=== PATIENT | female | born 1980 | race Caucasian/White ===

== ENCOUNTER 2019-05-23 14:59 | Outpatient (CLI) | payer OTHER, SELFPAY ==
--- NOTE | ~2019-05-23 | US_ITS ---
US thyroid INDICATION: Thyroid nodules. TECHNIQUE: Real-time sonographic images of the thyroid gland were obtained. COMPARISON: Ultrasound dated 02/03/2017 FINDINGS: The right thyroid lobe measures 5.1 x 1.2 x 1.3 cm. The left thyroid lobe measures 4.7 x 1 .2 x 1.6 cm. There is increased vascularity in both lobes. The nodules seen on prior ultrasound are n ot appreciated on the current examination. No discrete thyroid mass identified. IMPRESSION: 1. Enlarged thyroid gland with increased vascularity. No discrete mass identified. Reviewed, dictated and finalized at location A. RTISING PHOTOGRAPHER IMPRESSION: 1. Enlarged thyroid gland with increased vascularity. No discrete mass identif ied.
--- NOTE | ~2019-05-23 | XR_ITS ---
XR thoracic spine 3V 05/23/2019 16:19 Indication: Back pain Procedure: 3 views thoracic spine Comparison: No prior studies for comparison. Findings: Vertebral body heights are maintained. There is dextroscoliosis measuring 19 degrees center ed at T5. No paraspinal soft tissue abnormality. No fracture or traumatic malalignment. Surrounding o sseous structures are unremarkable. Impression: 1: Mild dextroscoliosis of the thoracic spine. Reviewed, dictated and finalized at location A. UTYLENE OPERATOR CHIEF Impression: 1: Mild dextroscoliosis of the thoracic spine.
--- NOTE | ~2019-05-23 | XR_ITS ---
XR shoulder LT min 2V 05/23/2019 16:19 Indication: Left shoulder pain. No acute injury. Procedure: 4 views left shoulder Comparison: No prior studies for comparison. Findings: No fracture, subluxation or dislocation. There is anatomic alignment. Small loose body post erior to the joint space. No significant soft tissue abnormality. Visualized lung parenchyma is unrem arkable. Impression: 1: No significant bone or joint abnormality. Reviewed, dictated and finalized at location A. NURSE SPEC Impression: 1: No significant bone or joint abnormality.
--- NOTE | ~2019-05-23 | MR_ITS ---
EXAMINATION: MR cervical spine wo con DATE: 05/23/2019 16:14 INDICATION: Chronic herniated nucleus pulposus at C6-C7. Chronic neck pain. TECHNIQUE: Magnetic resonance imaging (MRI) of the cervical spine was performed without intravenous c ontrast. Sequences included sagittal T2-weighted FSE, sagittal STIR FSE, sagittal T1-weighted FSE, ax ial MERGE, and axial T2-weighted FSE. COMPARISON: None FINDINGS: There is mild kyphosis of cervical spine. There is 4 degrees levocurvature of cervical spin e. Vertebral body heights and intervertebral disc heights are normal. The spinal cord signal intensit y is normal. The following disc levels are specifically discussed: C2-C3: The disc does not extend beyond the endplate margin. There is mild left uncovertebral joint os teoarthritis. There is mild left facet joint osteoarthritis. There is no neural foraminal stenosis. T here is no central canal stenosis. C3-C4: The disc does not extend beyond the endplate margin. There is no uncovertebral joint osteoarth ritis. There is no facet joint osteoarthritis. There is no neural foraminal stenosis. There is no sasha tral canal stenosis. C4-C5: The disc does not extend beyond the endplate margin. There is no uncovertebral joint osteoarth ritis. There is no facet joint osteoarthritis. There is no neural foraminal stenosis. There is no sasha tral canal stenosis. C5-C6: The disc does not extend beyond the endplate margin. There is mild left uncovertebral joint os teoarthritis. There is mild bilateral facet joint osteoarthritis. There is mild left neural foraminal stenosis. There is no central canal stenosis. C6-C7: The disc does not extend beyond the endplate margin. There is no uncovertebral joint osteoarth ritis. There is mild left facet joint osteoarthritis. There is no neural foraminal stenosis. There is no central canal stenosis. C7-T1: The disc does not extend beyond the endplate margin. There is no uncovertebral joint osteoarth ritis. There is mild bilateral facet joint osteoarthritis. There is no neural foraminal stenosis. The re is no central canal stenosis. IMPRESSION: 1. Mild cervical spondylosis. Reviewed, dictated and finalized at location A. AL OPERATOR
== END 2019-05-23 15:00 | disposition home or self-care (01) ==
PROVIDERS: PCP Internal Medicine
DX: E04.2 Nontoxic multinodular goiter (principal); M47.22 Other spondylosis with radiculopathy, cervical region; M41.84 Other forms of scoliosis, thoracic region; M25.512 Pain in left shoulder
CPT/HCPCS: 72072; 72141; 73030; 76536

== ENCOUNTER 2019-09-13 09:37 | Outpatient (CLI) | payer OTHER, SELFPAY ==
--- NOTE | ~2019-09-13 | MR_ITS ---
EXAMINATION: MR thoracic spine wo con DATE: 09/13/2019 10:55 INDICATION: Thoracic spine pain. TECHNIQUE: Magnetic resonance imaging (MRI) of the thoracic spine was performed without intravenous c ontrast. Sagittal localizer T1-weighted FSE of the cervical spine was obtained. Thoracic spine sequen tank included sagittal T2-weighted FSE, sagittal T1-weighted FSE, sagittal STIR FSE, and axial T2-weig hted FSE. COMPARISON: Thoracic spine radiographs 05/23/2019 FINDINGS: There is 7 degrees dextrocurvature of thoracic spine. Vertebral body heights and interverte bral disc heights are normal. The discs do not extend beyond the endplate margins. At T1-T2, there is moderate right facet joint osteoarthritis and mild right neural foraminal stenosis. No central canal stenosis. The spinal cord signal intensity is normal. IMPRESSION: 1. Mild thoracic spondylosis. Reviewed, dictated and finalized at location A.
== END 2019-09-13 09:38 | disposition home or self-care (01) ==
LOC: ANHIMG 09:44
PROVIDERS: PCP Internal Medicine
DX: M47.894 Other spondylosis, thoracic region (principal)
CPT/HCPCS: 72146

== ENCOUNTER 2019-09-27 17:47 | Emergency (ER) | payer OTHER, SELFPAY ==
[2019-09-27] VITALS (7 sets, daily range): BP systolic 118–140; BP diastolic 74–99; PULSE 59–85; RESP 16–20; TEMP 36.5; O2SAT 99–100
[2019-09-27 18:32] LABS: Basophils Percent Auto 0.2 % (0.2-1.2); Eosinophils Absolute Auto 0.1 K/mm3 (0-0.3); Eosinophils Percent Auto 0.9 % (0-4.4); Hematocrit 40.5 % (37.0-47.0); Hemoglobin 13.6 g/dL (12.0-15.0); Immature Granulocyte Absolute 0.03 K/mm3 (0.00-0.031); Immature Granulocyte Percent A 0.4 % (0-0.5); Lymphocytes Absolute Auto 1.56 K/mm3 (0.9-3.2); Lymphocytes Percent Auto 19.4 % (18.3-44.2); Mean Corpuscular HGB Conc 33.6 g/dl (32-36); Mean Corpuscular Hemoglobin 30.4 pg (26-34); Mean Corpuscular Volume 90.4 fl (80-100); Mean Platelet Volume 9.5 fl (7.4-10.4); Monocytes Absolute Auto 0.6 K/mm3 (0.1-0.6); Monocytes Percent Auto 7.7 % (2.6-8.5); Neutrophils Absolute Auto 5.7 K/mm3 (1.3-6.7); Neutrophils Percent Auto 71.4 % (45.5-73.1); Platelet Count Result 306 k/mm3 (150-375); Red Blood Count 4.48 M/mm3 (4.2-5.4); Red Cell Distribution Width 12.5 % (11.5-14.5)
[2019-09-27 18:44] LABS: Partial Thromboplastin Time 23.4 SECONDS (22.3-36.8); Prothrombin Time 12.7 Seconds (11.1-14.7)
[2019-09-27 18:49] LABS: Alanine Aminotransferase 32 U/L (4-35); Albumin Level 4.7 g/dL (3.5-5.1); Alkaline Phosphatase 60 U/L (38-126); Aspartate Amino Transferase 31 U/L (14-36); Bilirubin,Total 0.6 mg/dL (0.2-1.3); Blood Urea Nitrogen 12 mg/dL (7-17); Calcium 10.6 mg/dL (8.4-10.2); Carbon Dioxide 26 mmol/L (22-30); Chloride 99 mmol/L (98-107); Estimated CRCL calculation 84 ml/min; Estimated Glomerular Filt Rate > 60; Glucose 92 mg/dL (65-105); Sodium 136 mmol/L (137-145)
[2019-09-27] MEDS: HYOSCYAMINE SULFATE 0.125 MG TABLET PO (20:40)
[2019-09-27] MEDS: FAMOTIDINE 20 MG/2 ML VIAL IV PUSH (20:40)
[2019-09-27] MEDS: SODIUM CHLORIDE 0.9% IV 1,000 ML 999 ML (20:40)
[2019-09-27] MEDS: ONDANSETRON INJ 4 MG/2 ML VIAL (20:48)
--- NOTE | 2019-09-27 21:00 | ED.GENADULT ---
HPI - General Adult General Chief complaint: GI Bleed Stated complaint: bloody stools Time Seen by Provider: 09/27/19 19:47 History of Present Illness HPI narrative: Patient is a 38-year-old female who presents to emergency department for evaluation of rectal bleeding noting that she has had multiple loose red stools since this morning when she began to strain for a bowel movement and has since had some bloody stools described as red blood with some cramping in the lower abdomen patient notes that she was intoxicated last night but denies vomiting hematemesis. Patient notes some discomfort in the lower pelvic region. Patient took Tylenol earlier in the day and on arrival to emergency department is resting comfortably in the room in no distress patient denies similar occurrence in the past Related Data Allergies Allergy/AdvReac Type Severity Reaction Status Date / Time amoxicillin Allergy Unknown Verified 01/29/10 10:08 Sulfa (Sulfonamide Allergy Unknown Verified 01/29/10 10:08 Antibiotics) AMOXICILLIN TRIHYDRATE Allergy Intermediate Hives / Uncoded 08/24/17 11:50 Red Face POTASSIUM CLAVULANATE Allergy Intermediate Hives / Uncoded 08/24/17 11:50 Red Face SHELLFISH Allergy Mild HIVES Uncoded 08/06/14 12:31 Review of Systems Review of Systems: All systems reviewed & are unremarkable except as noted in HPI and below PMFSH Family History Family History (Updated 07/09/16 @ 23:56 by DOCTOR UNKNOWN) Grandparent Family history of bronchitis, Onset Age: 80 Social History Social History Smoking status: Never smoker Second hand tobacco smoke exposure: No Alcohol intake: current Exam Narrative: Exam Narrative: GENERAL: Well-appearing, well-nourished, and in no acute distress. HEAD: Normocephalic, atraumatic. EYES: PERRLA and EOMI. ENT: Nares clear, no rhinorrhea or epistaxis. Mucous membranes moist. CHEST: Clear to auscultation. No respiratory distress. No wheezes rales or rhonchi HEART: Regular rate and rhythm. No murmur heard. Normal peripheral pulses. ABDOMEN: Soft, mild tenderness in the lower quadrants of the abdomen, nondistended EXTREMITIES: Normal range of motion. No edema. SKIN: Warm, dry, no rash. NEURO: No focal deficits. Alert and oriented x3. Cranial nerves II through XII grossly intact PSYCH: Normal mood and affect. Course Course Emergency Course: Patient in the room in no distress aware of case findings treatment plan and diagnosis Vital Signs Vital signs: Vital Signs Temperature 97.7 F 09/27/19 18:08 Pulse Rate 85 09/27/19 18:08 Respiratory Rate 16 09/27/19 18:08 Blood Pressure 140/99 H 09/27/19 18:08 Pulse Oximetry 100 09/27/19 18:08 Temperature 97.7 F 09/27/19 18:08 Pulse Rate 78 09/27/19 20:49 Respiratory Rate 20 09/27/19 20:49 Blood Pressure 122/78 09/27/19 20:49 Pulse Oximetry 99 09/27/19 20:49 Medical Decision Making MDM Narrative Medical decision making narrative: Patient in the room in no distress guaiac-negative nothing exciting to be seen on the rectal exam other than a small area of irritation which could be a small fissure patient hemodynamically stable in no distress given fluids and medications in the emergency department will be discharged home for follow-up with gastroenterology provided with reasons to return as well Vital Signs Vital Signs: Vital Signs Temperature 97.7 F 09/27/19 18:08 Pulse Rate 85 09/27/19 18:08 Respiratory Rate 16 09/27/19 18:08 Blood Pressure 140/99 H 09/27/19 18:08 Pulse Oximetry 100 09/27/19 18:08 Temperature 97.7 F 09/27/19 18:08 Pulse Rate 78 09/27/19 20:49 Respiratory Rate 20 09/27/19 20:49 Blood Pressure 122/78 09/27/19 20:49 Pulse Oximetry 99 09/27/19 20:49 Lab Data Result diagrams: 09/27/19 18:11 09/27/19 18:11 Labs: Lab Results 09/27/19 09/27/19 06/2
[2019-09-27 21:25] LABS: Hematocrit 39.1 % (37.0-47.0); Hemoglobin 13.2 g/dL (12.0-15.0)
== END 2019-09-27 21:58 | disposition home or self-care (01) ==
PROVIDERS: Emergency Medicine; Emergency Medicine Emergency Medical Services; Emergency Provider Emergency Medicine; PCP Internal Medicine
DX: K62.5 Hemorrhage of anus and rectum (principal)
CPT/HCPCS: 36415; 80053; 85014; 85018; 85025; 85610; 85730; 86850; 86900; 86901; 96365; 96375; 99282; A9270; J0131; J2405; J7030

== ENCOUNTER 2019-09-28 04:26 | Emergency (ER) | payer OTHER, SELFPAY ==
--- NOTE | ~2019-09-28 | CT_ITS ---
EXAMINATION: CT abdomen pelvis w con DATE: 09/28/2019 05:28 INDICATION: Left lower quadrant abdominal pain TECHNIQUE: Computed tomography (CT) of the abdomen and pelvis was performed with 100 mL Omnipaque-350 intravenous contrast. Automated exposure control and iterative reconstruction technique were employe d. The dose-length product was 378.03 mGy-cm. COMPARISON: None FINDINGS: Lung bases are clear. Heart size is normal. No pericardial or pleural effusion. Focal hepatic steatos is at the ligamentum teres. Gallbladder, spleen, pancreas, bilateral adrenal glands and kidneys are n ormal. There is diffuse edematous wall thickening of the colon most prominent along the sigmoid colon consistent with colitis. No pneumatosis. Small bowel and appendix are normal. IUD in expected positi on within the endometrial complex of the anteverted uterus. Bladder is normal. Couple follicles in th e bilateral ovaries. Small fat-containing umbilical hernia. No free intraperitoneal gas or fluid. No pathologically enlarged abdominal or pelvic lymphadenopathy. IMPRESSION: 1. Colitis which could be infectious, inflammatory or less likely ischemic in etiology 2. IUD in expected position. Reviewed, dictated and finalized at location A. IMPRESSION: 1. Colitis which could be infectious, inflammatory or less likely ischemic in e tiology 2. IUD in expected position.
[2019-09-28 04:31] VITALS: BP 136/100; PULSE 73; RESP 14; TEMP 36.9; O2SAT 98
--- NOTE | 2019-09-28 05:22 | ED.ABDPAIN ---
HPI - Abdominal Pain General Chief Complaint: Abdominal Pain Stated Complaint: abd pain Time Seen by Provider: 09/28/19 04:37 History of Present Illness HPI narrative: Patient is a 38-year-old female who presents the ER with abdominal cramping. Seen earlier this evening for rectal bleeding. Was discharged home. Patient started having some blood per rectum again with worsening abdominal cramping says that she come back for further evaluation. The last thing she ate prior to developing her symptoms the day previous was a pork tenderloin. No one else is sick around her. She is without fevers or chills or sweats. No history of inflammatory bowel disease or diverticulitis. Patient reports when she passes blood from her rectum is not in large quantities but more of a bloody splatter. Related Data Allergies Allergy/AdvReac Type Severity Reaction Status Date / Time amoxicillin Allergy Unknown Verified 01/29/10 10:08 Sulfa (Sulfonamide Allergy Unknown Verified 01/29/10 10:08 Antibiotics) AMOXICILLIN TRIHYDRATE Allergy Intermediate Hives / Uncoded 08/24/17 11:50 Red Face POTASSIUM CLAVULANATE Allergy Intermediate Hives / Uncoded 08/24/17 11:50 Red Face SHELLFISH Allergy Mild HIVES Uncoded 08/06/14 12:31 Review of Systems Review of Systems: All systems reviewed & are unremarkable except as noted in HPI and below Constitutional: Constitutional: Denies chills, Denies fever(s) and Denies weakness Gastrointestinal: Gastrointestinal: Reports abdominal pain, Denies diarrhea, Reports nausea and Denies vomiting Comments: Rectal bleeding PMFSH Past Medical History Medical History (Updated 09/28/19 @ 06:44 by Joni Layne MD) No pertinent past medical history Surgical History Surgical History (Updated 09/28/19 @ 06:44 by Joni Layne MD) No pertinent past surgical history Family History Family History (Updated 07/09/16 @ 23:56 by DOCTOR UNKNOWN) Grandparent Family history of bronchitis, Onset Age: 80 Social History Social History Smoking status: Never smoker Second hand tobacco smoke exposure: No Alcohol intake: current Gender identity (if verbalized by the patient): Female Exam Narrative: Exam Narrative: GENERAL: Well-appearing, well-nourished, and in no acute distress. HEAD: Normocephalic, atraumatic. ENT: Mucous membranes moist. CHEST: Clear to auscultation. No respiratory distress. HEART: Regular rate and rhythm. Normal peripheral pulses. ABDOMEN: Soft, mild left lower quadrant tenderness without guarding, nondistended, rectal deferred. EXTREMITIES: Normal range of motion. No edema. NEURO: Alert and oriented x3. PSYCH: Normal mood and affect. Course Course Emergency Course: Informed of results. Morphine for pain, had to receive some Zofran for nausea secondary to the medication. Discharged with Cipro/Flagyl. Vital Signs Vital signs: Vital Signs Temperature 98.5 F 09/28/19 04:31 Pulse Rate 73 09/28/19 04:31 Respiratory Rate 14 09/28/19 04:31 Blood Pressure 136/100 H 09/28/19 04:31 Pulse Oximetry 98 09/28/19 04:31 Temperature 98.5 F 09/28/19 04:31 Pulse Rate 71 09/28/19 06:19 Respiratory Rate 16 09/28/19 06:19 Blood Pressure 131/88 09/28/19 06:19 Pulse Oximetry 100 09/28/19 06:19 MDM - Abdominal Pain Lab Data Labs: UCG Bedside Result Negative Reference Range: Negative Imaging Data Radiologist's impression: CT A/P: Desceding colitis Discharge Plan Discharge Clinical Impression: Colitis Patient Disposition: Home, Self-Care Condition: Stable Instructions: Antibiotic Form, Colitis (ED) Additional Instructions: Return the ER if you have fever over 100.4 ?F, you cannot keep down food or water, you have chest pain or shortness of breath, you have additional concerns. Prescriptions: New ciprofloxacin HCl [Cipro] 500
[2019-09-28] MEDS: MORPHINE SULFATE 4 MG/ML INJ IV PUSH (05:55)
[2019-09-28] MEDS: ONDANSETRON INJ 4 MG/2 ML VIAL (06:18)
[2019-09-28 06:19] VITALS: BP 131/88; PULSE 71; RESP 16; O2SAT 100
== END 2019-09-28 06:20 | disposition home or self-care (01) ==
PROVIDERS: Emergency Provider Emergency Medicine; PCP Internal Medicine
DX: K52.9 Noninfective gastroenteritis and colitis, unspecified (principal)
CPT/HCPCS: 74177; 81025; 96374; 96375; 99284; J2270; J2405; Q9967

== ENCOUNTER 2019-10-29 03:01 | Outpatient (CLI) | payer OTHER, SELFPAY ==
[2019-10-30 22:31] LABS: SARS-CoV-2 RNA PCR Negative
== END 2019-10-29 03:02 | disposition home or self-care (01) ==
LOC: ANHCOVIDDT 03:01
PROVIDERS: PCP Internal Medicine; Visit Provider Internal Medicine Gastroenterology
DX: Z01.812 Encounter for preprocedural laboratory examination (principal); Z11.59 Encounter for screening for other viral diseases
CPT/HCPCS: 87635; C9803; U0003

== ENCOUNTER 2019-10-31 02:20 | Day surgery (SDC) | payer OTHER, SELFPAY ==
[2019-10-23 10:06] VITALS: BMI 24.9
[2019-10-31 07:38] VITALS: BP 118/73; PULSE 72; RESP 18; TEMP 36.7; O2SAT 100; BMI 25.2
[2019-10-31] MEDS: LACTATED RINGERS 1,000 ML 150 ML IV CONT (07:49)
--- NOTE | 2019-10-31 08:06 | WPDGICN ---
Assessment and Plan Assessment and plan (1) Infectious colitis: Code(s): A09 - Infectious gastroenteritis and colitis, unspecified Status: Acute Assessment and Plan: Patient presents for evaluation of abdominal pain and bloody stools. She had an abnormal CT scan in the emergency room raising the question of thickening of the sigmoid colon. Infectious colitis appears most likely. Although inflammatory bowel disease cannot be excluded. Plan is for patient have a high-fiber diet. She has completed a course of antibiotics. A colonoscopy will be performed to ensure resolution of her colitis or to determine if any ongoing pathology remains. GI Consult Note Consult date/time: 10/31/19 08:06 HPI: Kirstie Thomas is a 38 year old female seen in evaluation at the request of Dr Joni Prado. Patient reports an episode of severe abdominal pain associated with bloody diarrhea that awoke her from sleep 1 month ago. She presented to the emergency room a CT scan suggested colitis with thickening of the colon predominantly in the sigmoid colon. Patient was treated with broad-spectrum antibiotic coverage. She subsequently improved and has done well. Currently free from pain she denies any ongoing bleeding. Her bowel habits return to normal shoe. She denies any blood loss. Family history is significant her father had diverticulitis. Her mother has unspecified colon issues. Review of Systems Review of Systems: All systems reviewed & are unremarkable except as noted in HPI and below PMFSH Past Medical History Medical History No pertinent past medical history Surgical History Surgical History No pertinent past surgical history Family History Family History Grandparent Family history of bronchitis, Onset Age: 80 Social History Social History Smoking status: Never smoker Second hand tobacco smoke exposure: No Alcohol intake: current Gender identity (if verbalized by the patient): Female Meds Home Medications and Allergies Home Medications Medication Instructions Recorded Confirmed Type levothyroxine 137 mcg PO DAILY 10/23/19 10/31/19 History Allergies Allergy/AdvReac Type Severity Reaction Status Date / Time clavulanic acid Allergy Mild Hives Verified 10/31/19 07:36 [From Augmentin] amoxicillin Allergy Unknown Other Verified 10/23/19 10:06 Sulfa (Sulfonamide Allergy Unknown Other Verified 10/23/19 10:06 Antibiotics) AMOXICILLIN TRIHYDRATE Allergy Intermediate Hives / Uncoded 10/23/19 10:06 Red Face POTASSIUM CLAVULANATE Allergy Intermediate Hives / Uncoded 10/23/19 10:06 Red Face SHELLFISH Allergy Mild HIVES Uncoded 10/23/19 10:06 Vital Signs Vital Signs - 24 hr 10/31/19 07:38 Temperature 98.1 F Pulse Rate 72 Respiratory Rate 18 Blood Pressure 118/73 Pulse Oximetry 100 Exam Narrative: Exam Narrative: Physical exam reveals patient to be alert. Vital signs are stable. She is somewhat anxious at rest. HEENT exam unremarkable. She is anicteric. Lungs are clear to auscultation and percussion. Heart is without murmur or extra sounds. Abdominal exam bowel sounds are present soft nontender with no organomegaly. Digital external rectal exam is normal.
--- NOTE | 2019-10-31 08:37 | WPDANESEPPF ---
Anes - Initial Pre Proc Eval Procedure: Operation Date: 10/31/19 08:30 Proposed Procedures p Colonoscopy - Too Ortiz MD Date/Time: 10/31/19 08:37 Surgeon: Too Ortiz MD Pre Op Diagnosis: Colitis Patient Data Age: 38 Gender: F Height: 5 ft 6 in Weight: 70.9 kg Last Vital Signs Temp 98.1 F 10/31/19 07:38 Pulse 72 10/31/19 07:38 Resp 18 10/31/19 07:38 BP 118/73 10/31/19 07:38 Pulse Ox 100 10/31/19 07:38 Allergies Allergy/AdvReac Type Severity Reaction Status Date / Time clavulanic acid Allergy Mild Hives Verified 10/31/19 07:36 [From Augmentin] amoxicillin Allergy Unknown Other Verified 10/23/19 10:06 Sulfa (Sulfonamide Allergy Unknown Other Verified 10/23/19 10:06 Antibiotics) AMOXICILLIN TRIHYDRATE Allergy Intermediate Hives / Uncoded 10/23/19 10:06 Red Face POTASSIUM CLAVULANATE Allergy Intermediate Hives / Uncoded 10/23/19 10:06 Red Face SHELLFISH Allergy Mild HIVES Uncoded 10/23/19 10:06 Home Medications Medication Instructions Recorded Confirmed Type levothyroxine 137 mcg PO DAILY 10/23/19 10/31/19 History Patient hx anesthesia problems: none Family hx anesthesia problems: none PMFSH Past Medical History Medical History (Updated 10/31/19 @ 08:36 by Raymundo Calix MD) Hypothyroid No pertinent past medical history Surgical History Surgical History No pertinent past surgical history Family History Family History Grandparent Family history of bronchitis, Onset Age: 80 Social History Social History Smoking status: Never smoker Second hand tobacco smoke exposure: No Alcohol intake: current Gender identity (if verbalized by the patient): Female Anes - Eval Final PreProcedure Day of Procedure 10/31/19 08:37 Patient weight: normal Heart: regular rate and rhythm Lungs: clear to auscultation Airway: Mallampati scale class II Neurological: alert and oriented Last oral intake: >/= 8 hours ASA classification: II Emergent: no Anesthetic plan: proceed Anesthesia type and monitoring: general GIVS and standard monitoring Informed Consent: The patient's anesthetic plan and its attendant risks and benefits were discussed with the patient/family/POA. Questions were solicited and answers provided to the satisfaction of the patient/family/POA.
--- NOTE | 2019-10-31 08:38 | WPDANESEPPF ---
Anes - Initial Pre Proc Eval Procedure: Operation Date: 10/31/19 08:30 Proposed Procedures p Colonoscopy - Too Ortiz MD Date/Time: 10/31/19 08:38 Surgeon: Too Ortiz MD Pre Op Diagnosis: Colitis Patient Data Age: 38 Gender: F Height: 5 ft 6 in Weight: 70.9 kg Last Vital Signs Temp 98.1 F 10/31/19 07:38 Pulse 72 10/31/19 07:38 Resp 18 10/31/19 07:38 BP 118/73 10/31/19 07:38 Pulse Ox 100 10/31/19 07:38 Allergies Allergy/AdvReac Type Severity Reaction Status Date / Time clavulanic acid Allergy Mild Hives Verified 10/31/19 07:36 [From Augmentin] amoxicillin Allergy Unknown Other Verified 10/23/19 10:06 Sulfa (Sulfonamide Allergy Unknown Other Verified 10/23/19 10:06 Antibiotics) AMOXICILLIN TRIHYDRATE Allergy Intermediate Hives / Uncoded 10/23/19 10:06 Red Face POTASSIUM CLAVULANATE Allergy Intermediate Hives / Uncoded 10/23/19 10:06 Red Face SHELLFISH Allergy Mild HIVES Uncoded 10/23/19 10:06 Home Medications Medication Instructions Recorded Confirmed Type levothyroxine 137 mcg PO DAILY 10/23/19 10/31/19 History Patient hx anesthesia problems: none Family hx anesthesia problems: none PMFSH Past Medical History Medical History (Updated 10/31/19 @ 08:36 by Raymundo Calix MD) Hypothyroid No pertinent past medical history Surgical History Surgical History No pertinent past surgical history Family History Family History Grandparent Family history of bronchitis, Onset Age: 80 Social History Social History Smoking status: Never smoker Second hand tobacco smoke exposure: No Alcohol intake: current Gender identity (if verbalized by the patient): Female Anes - Eval Final PreProcedure Day of Procedure 10/31/19 08:38 Patient weight: normal Heart: regular rate and rhythm Lungs: clear to auscultation Airway: Mallampati scale class II Neurological: alert and oriented Last oral intake: >/= 8 hours ASA classification: II Emergent: no Anesthetic plan: proceed Anesthesia type and monitoring: general GIVS and standard monitoring Informed Consent: The patient's anesthetic plan and its attendant risks and benefits were discussed with the patient/family/POA. Questions were solicited and answers provided to the satisfaction of the patient/family/POA.
[2019-10-31 09:00] VITALS: BP 105/70; PULSE 60; RESP 19; O2SAT 100
[2019-10-31 09:10] VITALS: BP 117/76; PULSE 70; RESP 22; O2SAT 100
[2019-10-31 09:20] VITALS: BP 129/79; PULSE 68; RESP 20; O2SAT 100
== END 2019-10-31 09:29 | disposition home or self-care (01) ==
PROVIDERS: PCP Internal Medicine; Visit Provider Internal Medicine Gastroenterology
PROC: 0DJD8ZZ Inspection of Lower Intestinal Tract, Via Natural or Artificial Opening Endoscopic (ICD-10-PCS; CPT 45378; principal; 2019-10-31 08:30)
DX: Z09 Encounter for follow-up examination after completed treatment for conditions other than malignant neoplasm (principal); K64.8 Other hemorrhoids; Z87.19 Personal history of other diseases of the digestive system; E03.9 Hypothyroidism, unspecified
CPT/HCPCS: 45378; 87635; C9803; J2704; J7120; U0003

== ENCOUNTER → 2020-11-12 15:30 | Outpatient (CLI) | payer OTHER, SELFPAY ==
--- NOTE | ~2020-11-12 | XR_ITS ---
EXAMINATION: XR chest 2V DATE: 11/12/2020 16:10 INDICATION: Left shoulder pain. Cervical radicular pain. Thoracic outlet syndrome. TECHNIQUE: Frontal and lateral views of the chest were obtained. COMPARISON: CT abdomen and pelvis 09/28/19, neck CT 09/19/2015 FINDINGS: The chest demonstrates clear lungs without pneumonia, pleural effusion, or pneumothorax. Th e heart size is normal. There is elongation of the left C7 transverse process. IMPRESSION: 1. Elongation of the left C7 transverse process. Reviewed, dictated and finalized at location A.
== END ==
PROVIDERS: PCP Internal Medicine; Visit Provider Physician Assistant
DX: M54.12 Radiculopathy, cervical region (principal); M25.512 Pain in left shoulder
CPT/HCPCS: 71046

== ENCOUNTER → 2021-01-12 09:33 | Outpatient (CLI) | payer OTHER, SELFPAY ==
--- NOTE | ~2021-01-12 | MR_ITS ---
EXAMINATION: MR shoulder LT wo con DATE: 01/12/2021 10:17 INDICATION: Other shoulder lesions, left shoulder. Left shoulder pain. TECHNIQUE: Magnetic resonance imaging (MRI) of the left shoulder was performed without intravenous co ntrast. Sequences included axial PD-weighted FS FSE, coronal oblique PD-weighted FS FSE and T2-weight ed FS FSE, and sagittal oblique T2-weighted FS FSE and T1-weighted FSE. COMPARISON: Left shoulder radiographs 05/23/2019 FINDINGS: Coracoacromial arch: The acromion undersurface is curved in morphology (type II). Subacromial spurring is noted. Acromiocl avicular joint is normal. No significant subacromial/subdeltoid bursitis. Rotator cuff: There is mild supraspinatus and infraspinatus tendinopathy. Teres minor tendon is normal. Subscapular is tendon is normal. No tear. There is no asymmetric fatty atrophy of the rotator cuff muscle bellies . Biceps tendon and glenoid labrum: Biceps tendon is in bicipital groove. Intra-articular biceps tendon is normal. The glenoid labrum is normal. Fluid: There is no glenohumeral joint effusion. Bones/cartilage: Glenoid cartilage is normal. Humeral head cartilage is normal. IMPRESSION: 1. Mild rotator cuff tendinopathy. No tear. Reviewed, dictated and finalized at location A.
== END ==
PROVIDERS: PCP Internal Medicine; Visit Provider Physician Assistant
DX: M75.82 Other shoulder lesions, left shoulder (principal); M25.512 Pain in left shoulder
CPT/HCPCS: 73221

== ENCOUNTER → 2021-01-12 15:35 | Outpatient (CLI) | payer OTHER, SELFPAY ==
--- NOTE | ~2021-01-12 | MM_ITS ---
EXAMINATION: MM screening katt BI w noe HISTORY: Screening TECHNIQUE: Craniocaudal and mediolateral oblique 3-D tomosynthesis images were obtained and synthetic 2-D images were generated. CAD analysis was submitted and interpreted. COMPARISON: No prior mammogram is available for comparison at this institution. BREAST PARENCHYMAL COMPOSITION: There are scattered areas of fibroglandular density. FINDINGS: There is no evidence of suspicious mass, calcification, or architectural distortion to sugg est malignancy in either breast. There has been no suspicious interval change. IMPRESSION: 1. No mammographic evidence of malignancy. 2. Recommend routine screening mammography in one year. BI-RADS Category 1: Negative Reviewed, dictated and finalized at location A.
== END ==
PROVIDERS: PCP Internal Medicine; Visit Provider Obstetrics & Gynecology
DX: Z12.31 Encounter for screening mammogram for malignant neoplasm of breast (principal)
CPT/HCPCS: 77063; 77067

== ENCOUNTER 2021-07-28 10:01 | Emergency (ER) | payer OTHER, SELFPAY ==
[2021-07-28 10:12] VITALS: BP 120/81; PULSE 70; RESP 16; TEMP 36.3; O2SAT 100
--- NOTE | 2021-07-28 10:12 | ED.EAR ---
HPI - Ear Problem General Chief complaint: Upper Respiratory Infection Stated complaint: sorethroat,bilateral ear pain Time Seen by Provider: 07/28/21 10:20 Source: patient, RN notes reviewed and old records reviewed Mode of arrival: ambulatory Limitations: no limitations History of Present Illness HPI Narrative: 40-year-old female who presents to [facility] with complaints of sore throat and bilateral ear pain for the past 4 days. Patient reports that throat is more painful in the morning and at night she has been taking ibuprofen for her pain. Patient verbalizes some nasal drainage and bilateral ear pain also and left lymph node swelling with discomfort. Patient reports that she did a home COVID test last evening that was negative, she states that she has had COVID vaccinations and also flu shot this season.Patient reports no fevers, chills or sweats, no complaints of body aches. MD Complaint: ear pain Location: bilateral Severity: moderate Discharge from ear: Reports no Associated symptoms ear: neck swelling (left neck lymph node) Treatment prior to arrival: oral analgesic Related Data Home Medications Medication Instructions Recorded Confirmed levothyroxine 137 mcg PO DAILY 10/23/19 07/28/21 levonorgestrel [Mirena] 1 device INTRAUTERINE ONCE 07/28/21 07/28/21 spironolactone 100 mg PO BID 07/28/21 07/28/21 Allergies Allergy/AdvReac Type Severity Reaction Status Date / Time clavulanic acid Allergy Mild Hives Verified 07/28/21 10:20 [From Augmentin] amoxicillin Allergy Unknown Other Verified 07/28/21 10:20 Sulfa (Sulfonamide Allergy Unknown Other Verified 07/28/21 10:20 Antibiotics) AMOXICILLIN TRIHYDRATE Allergy Intermediate Hives / Uncoded 10/23/19 10:06 Red Face POTASSIUM CLAVULANATE Allergy Intermediate Hives / Uncoded 10/23/19 10:06 Red Face SHELLFISH Allergy Mild HIVES Uncoded 10/23/19 10:06 Review of Systems Review of Systems: CONSTITUTIONAL: Denies fever, chills, or sweats. EYES: Denies visual changes, redness, or discharge. ENT: Minimal rhinorrhea, congestion, positive for sore throat,bilateral otalgia. CARDIOVASCULAR: Denies chest pain, palpitations, or edema. RESPIRATORY: Denies cough or dyspnea. GASTROINTESTINAL: Denies abdominal pain, nausea, vomiting, or diarrhea. GENITOURINARY: Denies dysuria or hematuria. SKIN: Denies rash or itching. MUSCULOSKELETAL: Denies back pain, joint pain, or myalgia. NEUROLOGIC: Denies headache, numbness, or weakness. PSYCHIATRIC: Positive for history of anxiety or depression. All systems reviewed & are unremarkable except as noted in HPI and below PMFSH Past Medical History Medical History (Updated 07/28/21 @ 10:40 by Mariana Frank NP) Depression Hypothyroid Surgical History Surgical History (Updated 07/28/21 @ 10:15 by Mariana Frank NP) H/O section History of dilatation and curettage History of tonsillectomy Family History Family History (Updated 07/28/21 @ 10:15 by Mariana Frank NP) Grandparent Family history of bronchitis, Onset Age: 80 Father Throat cancer Mother Hypothyroidism Social History Social History (Updated 07/28/21 @ 10:49 by Mariana Frakn NP) Smoking status: Never smoker Second hand tobacco smoke exposure: No Alcohol intake: current Substance use type: does not use Living arrangements: with family 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 There is no relevant family history pertinent to the presenting complaint Exam Narrative: GENERAL: Well-appearing, well-nourished, and in no acute distress. HEAD: Normocephalic, atraumatic. EYES: PERRLA and EOMI. ENT: Nares with minimal redness, clear rhinorrhea no epistaxis. Mucous membranes moist.TM's normal with dull lig
== END 2021-07-28 10:45 | disposition home or self-care (01) ==
PROVIDERS: Emergency Provider Registered Nurse; PCP Internal Medicine
DX: J02.0 Streptococcal pharyngitis (principal); H92.03 Otalgia, bilateral; E03.9 Hypothyroidism, unspecified
CPT/HCPCS: 87081; 87147; 87880; 99213; G0463

== ENCOUNTER → 2022-04-02 13:53 | Outpatient (CLI) | payer OTHER, SELFPAY ==
--- NOTE | ~2022-04-02 | MM_ITS ---
EXAMINATION: MM screening katt BI w noe HISTORY: Screening mammogram TECHNIQUE: Craniocaudal and mediolateral oblique 3-D tomosynthesis images were obtained and synthetic 2-D images were generated. CAD analysis was submitted and interpreted. COMPARISON: 01/12/2021 bilateral screening mammogram BREAST PARENCHYMAL COMPOSITION: There are scattered areas of fibroglandular density. FINDINGS: There is no evidence of suspicious mass, calcification, or architectural distortion to sugg est malignancy in either breast. There has been no suspicious interval change. IMPRESSION: 1. No mammographic evidence of malignancy. 2. Recommend routine screening mammography in one year. BI-RADS Category 1: Negative Reviewed, dictated and finalized at location A. COMMUNICATIONS
== END ==
PROVIDERS: PCP Internal Medicine; Visit Provider Obstetrics & Gynecology
DX: Z12.31 Encounter for screening mammogram for malignant neoplasm of breast (principal)
CPT/HCPCS: 77063; 77067

== ENCOUNTER 2023-02-28 15:25 | Emergency (ER) | payer OTHER, SELFPAY ==
[2023-02-28 15:31] VITALS: BP 111/82; PULSE 90; RESP 16; TEMP 36.6; O2SAT 100
--- NOTE | 2023-02-28 16:09 | ED.URI ---
HPI - URI/Sore Throat General Chief Complaint: Upper Respiratory Infection Stated Complaint: Sore Throat,Bilateral Ear Irritation,Fatigue Time Seen by Provider: 02/28/23 16:00 Source: patient and RN notes reviewed Mode of arrival: ambulatory Limitations: no limitations History of Present Illness HPI Narrative: Patient presents today complaining of a sore throat, bilateral ear pain, fatigue, headache since yesterday. Denies fever or cough. Currently rates her pain 6/10 and has been taking cold and flu medicine without relief. Patient works at a school. Related Data Home Medications Medication Instructions Recorded Confirmed levothyroxine 137 mcg tablet 137 mcg PO DAILY 10/23/19 02/28/23 levonorgestrel 21 mcg/24 hours (8 1 device intrauterine ONCE 07/28/21 02/28/23 yrs) 52 mg intrauterine device (Mirena) spironolactone 100 mg tablet 100 mg PO BID 07/28/21 02/28/23 Allergies Allergy/AdvReac Type Severity Reaction Status Date / Time amoxicillin AdvReac Mild Hives Verified 02/28/23 15:34 clavulanic acid AdvReac Mild Hives Verified 02/28/23 15:34 [From Augmentin] Sulfa (Sulfonamide AdvReac Mild Hives Verified 02/28/23 15:34 Antibiotics) AMOXICILLIN TRIHYDRATE AdvReac Intermediate Hives / Uncoded 02/28/23 15:34 Red Face POTASSIUM CLAVULANATE AdvReac Intermediate Hives / Uncoded 02/28/23 15:34 Red Face SHELLFISH AdvReac Mild HIVES Uncoded 02/28/23 15:34 Review of Systems Review of Systems: CONSTITUTIONAL: Denies body aches, fever, chills, or sweats.+ fatigue EYES: Denies visual changes, redness, or discharge. ENT: Denies rhinorrhea, congestion. + sore throat, bilateral ear pain CARDIOVASCULAR: Denies chest pain, palpitations, or edema. RESPIRATORY: Denies cough or dyspnea. GASTROINTESTINAL: Denies abdominal pain, nausea, vomiting, or diarrhea. GENITOURINARY: Denies dysuria or hematuria. SKIN: Denies rash, itching, or wounds. MUSCULOSKELETAL: Denies back pain, joint pain, or myalgia. NEUROLOGIC: Denies numbness, tingling, or weakness.+ headache PSYCH: Denies depression or anxiety. 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 Please see nursing chart for further information. There is no relevant family history pertinent to the presenting complaint Exam Narrative: GENERAL: Well-appearing, well-nourished, and in no acute distress. HEAD: Normocephalic, atraumatic. EYES: EOMI. No redness or drainage. Conjunctivae normal. ENT: Mucous membranes pink and moist. Nares clear. No rhinorrhea. Right TM is mildly erythematous and bulging. Left TM is normal. Patient has small amount of dried blood in the left ear canal. Throat normal. Uvula midline. NECK: Normal AROM. Supple. No lymphadenopathy. CHEST: No respiratory distress. Clear to auscultation. HEART: Regular rate and rhythm. No murmur appreciated. Normal peripheral pulses. EXTREMITIES: Normal range of motion. No edema. SKIN: Warm,
== END 2023-02-28 16:15 | disposition home or self-care (01) ==
PROVIDERS: Emergency Provider Nurse Practitioner; PCP Internal Medicine
DX: H65.191 Other acute nonsuppurative otitis media, right ear (principal); J06.9 Acute upper respiratory infection, unspecified; E03.9 Hypothyroidism, unspecified; Z79.899 Other long term (current) drug therapy
CPT/HCPCS: 87081; 87880; 99213; G0463

== ENCOUNTER 2023-06-09 10:08 | Outpatient (CLI) | payer OTHER, SELFPAY ==
--- NOTE | ~2023-06-09 | MM_ITS ---
EXAMINATION: MM screening katt BI w noe HISTORY: Screening mammogram TECHNIQUE: Craniocaudal and mediolateral oblique 3-D tomosynthesis images were obtained and synthetic 2-D images were generated. CAD analysis was submitted and interpreted. COMPARISON: 04/02/2022, 01/12/2021 bilateral screening mammogram examinations BREAST PARENCHYMAL COMPOSITION: There are scattered areas of fibroglandular density. FINDINGS: There is no evidence of suspicious mass, calcification, or architectural distortion to sugg est malignancy in either breast. There has been no suspicious interval change. IMPRESSION: 1. No mammographic evidence of malignancy. 2. Recommend routine screening mammography in one year. BI-RADS Category 1: Negative Reviewed, dictated and finalized at location A. DEVELOPER
== END 2023-06-09 10:09 ==
LOC: MICIMG 10:09
PROVIDERS: PCP Obstetrics & Gynecology; Visit Provider Obstetrics & Gynecology
DX: Z12.31 Encounter for screening mammogram for malignant neoplasm of breast (principal)
CPT/HCPCS: 77063; 77067

== ENCOUNTER 2023-12-01 14:36 | Outpatient (CLI) | payer OTHER, SELFPAY ==
--- NOTE | ~2023-12-01 | US_ITS ---
EXAMINATION: US soft tissue head and neck DATE: 12/01/2023 15:00 INDICATION: Thyroid nodule. TECHNIQUE: Multiple ultrasound images of the thyroid were obtained. COMPARISON: Ultrasound 05/23/2019 FINDINGS: The right thyroid lobe measures 3.3 x 0.9 x 1.1 cm. The left thyroid lobe measures 1.7 x 0.7 x 0.8 c m. There is normal echotexture and echogenicity throughout the thyroid gland. No discrete nodules id entified. Normal vascular flow is present. IMPRESSION: 1. Normal thyroid. Reviewed, dictated and finalized at location A. IMPRESSION: 1. Normal thyroid.
== END 2023-12-01 14:37 | disposition home or self-care (01) ==
LOC: ANHIMG 14:39
PROVIDERS: PCP Internal Medicine; Visit Provider Internal Medicine
DX: E04.1 Nontoxic single thyroid nodule (principal)
CPT/HCPCS: 76536

== ENCOUNTER 2024-03-24 08:17 | Outpatient (CLI) | payer OTHER, SELFPAY ==
--- NOTE | ~2024-03-24 | MR_ITS ---
EXAMINATION: MR shoulder LT wo con DATE: 03/24/2024 09:18 INDICATION: Left shoulder rotator cuff tendinitis and pain. TECHNIQUE: Magnetic resonance imaging (MRI) of the left shoulder was performed without intravenous co ntrast. Sequences included axial PD-weighted FS FSE, coronal oblique PD-weighted FS FSE and T2-weight ed FS FSE, and sagittal oblique T2-weighted FS FSE and T1-weighted FSE. COMPARISON: Left shoulder MRI 01/12/2021 FINDINGS: Coracoacromial arch: The acromion undersurface is curved in morphology (type II). The acromioclavicular joint is normal. T here is a physiologic volume of fluid in subacromial/subdeltoid bursa. Rotator cuff: There is mild supraspinatus and infraspinatus tendinopathy. Teres minor tendon is normal. Subscapular is tendon is normal. There is mild edema in supraspinatus muscle belly, consistent with strain. Biceps tendon and glenoid labrum: Biceps tendon is in bicipital groove. Intra-articular biceps tendon is normal. The glenoid labrum is normal. Fluid: There is no glenohumeral joint effusion. IMPRESSION: 1. Mild rotator cuff tendinopathy. No tear. 2. Mild supraspinatus muscle strain (grade 1). Reviewed, dictated and finalized at location A. GATION OFFICER
--- NOTE | ~2024-03-24 | MR_ITS ---
EXAMINATION: MR cervical spine wo con DATE: 03/24/2024 09:24 INDICATION: Cervical radicular pain. TECHNIQUE: Magnetic resonance imaging (MRI) of the cervical spine was performed without intravenous c ontrast. COMPARISON: Cervical spine MRI 05/23/2019 FINDINGS: Bone alignment is normal. Vertebral body heights and intervertebral disc heights are normal . The spinal cord signal intensity is normal. The following disc levels are specifically discussed: C2-C3: The disc does not extend beyond the endplate margin. There is no uncovertebral joint osteoarth ritis. There is no facet joint osteoarthritis. There is no neural foraminal stenosis. There is no sasha tral canal stenosis. C3-C4: The disc does not extend beyond the endplate margin. There is no uncovertebral joint osteoarth ritis. There is mild bilateral facet joint osteoarthritis. There is no neural foraminal stenosis. The re is no central canal stenosis. C4-C5: The disc does not extend beyond the endplate margin. There is no uncovertebral joint osteoarth ritis. There is mild bilateral facet joint osteoarthritis. There is no neural foraminal stenosis. The re is no central canal stenosis. C5-C6: The disc does not extend beyond the endplate margin. There is mild bilateral uncovertebral rey nt osteoarthritis. There is mild left facet joint osteoarthritis. There is mild left neural foraminal stenosis. There is no central canal stenosis. C6-C7: The disc does not extend beyond the endplate margin. There is no uncovertebral joint osteoarth ritis. There is mild left facet joint osteoarthritis. There is mild left neural foraminal stenosis. T here is no central canal stenosis. C7-T1: The disc does not extend beyond the endplate margin. There is no uncovertebral joint osteoarth ritis. There is mild bilateral facet joint osteoarthritis. There is no neural foraminal stenosis. The re is no central canal stenosis. IMPRESSION: 1. Mild cervical spondylosis. Reviewed, dictated and finalized at location A. ARCH AND EVALUATION MANAGER
== END 2024-03-24 08:18 | disposition home or self-care (01) ==
PROVIDERS: PCP Internal Medicine; Visit Provider Physician Assistant
DX: M43.02 Spondylolysis, cervical region (principal); S46.011A Strain of muscle(s) and tendon(s) of the rotator cuff of right shoulder, initial encounter; M75.82 Other shoulder lesions, left shoulder; M75.32 Calcific tendinitis of left shoulder; X58.XXXA Exposure to other specified factors, initial encounter
CPT/HCPCS: 72141; 73221

== ENCOUNTER 2024-06-20 14:57 | Outpatient (CLI) | payer OTHER, SELFPAY ==
--- NOTE | ~2024-06-20 | XR_ITS ---
XR sacroiliac joints min 3V Ordering provider: Frances Wan, History: . Other specified abnormal immunological findings in serum . Comparison: None. FINDINGS: BONES: No acute fracture or dislocation. JOINTS: The bilateral sacroiliac joint spaces appear well maintained. No bony fusion of the sacroilia c joints or bony erosions. SOFT TISSUES: Unremarkable. Pubic symphysitis. IMPRESSION: NO ACUTE OSSEOUS ABNORMALITY. NORMAL SACROILIAC JOINTS. Reviewed, dictated and finalized at location A.
--- NOTE | ~2024-06-20 | XR_ITS ---
XR hand BI arthritis min 3V Ordering provider: Frances Wan, History: . Other specified abnormal immunological findings in serum . Comparison: None. FINDINGS: BONES: No acute fracture or dislocation. JOINT SPACES: Well maintained. Osteophytes are seen in the interphalangeal joint of the thumb on both sides. SOFT TISSUES: Unremarkable. IMPRESSION: No acute osseous abnormality left and right hand. 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 Reviewed, dictated and finalized at location A. IMPRESSION: No acute osseous abnormality left and right hand. 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
== END 2024-06-20 14:58 | disposition home or self-care (01) ==
LOC: MICIMG 15:05
PROVIDERS: PCP Internal Medicine; Visit Provider Internal Medicine
DX: R76.8 Other specified abnormal immunological findings in serum (principal); M54.2 Cervicalgia; M79.10 Myalgia, unspecified site; M54.9 Dorsalgia, unspecified
CPT/HCPCS: 72202; 73130

== ENCOUNTER 2024-10-03 12:44 | Outpatient (CLI) | payer OTHER, SELFPAY ==
--- NOTE | ~2024-10-03 | MM_ITS ---
EXAMINATION: MM screening [facility] BI w noe HISTORY: Screening mammogram TECHNIQUE: Craniocaudal and mediolateral oblique 3-D tomosynthesis images were obtained and synthetic 2-D images were generated. CAD analysis was submitted and interpreted. COMPARISON: 06/09/2023, 04/02/2022, 01/12/2021 BREAST PARENCHYMAL COMPOSITION:Not Dense. There are scattered areas of fibroglandular density. FINDINGS: No suspicious mass, calcification, or architectural distortion are identified in either adriana ast to suggest malignancy. There has been no suspicious interval change. IMPRESSION: No mammographic evidence of malignancy. Recommend routine screening mammography in one year. BI-RADS Category 1: Negative Reviewed, dictated and finalized at location .
== END 2024-10-03 12:45 | disposition home or self-care (01) ==
LOC: MICIMG 12:45
PROVIDERS: PCP Internal Medicine; Visit Provider Obstetrics & Gynecology
DX: Z12.31 Encounter for screening mammogram for malignant neoplasm of breast (principal)
CPT/HCPCS: 77063; 77067